=== PATIENT | male | born 1995 | race Two or more races ===

== ENCOUNTER 2018-12-28 01:56 | Emergency (ER) | payer OTHER ==
[~2018-12-28] VITALS: Ht 167.6 cm; Wt 77.1 kg
[2018-12-28] MEDS ORDERED: AZITHROMYCIN 250 MG TABLET PO ONE (03:00)
[2018-12-28] MEDS ORDERED: GUAIFENESIN/D-METHORPHAN HB 5 ML UDC PO ONE (03:00)
[2018-12-28] MEDS ORDERED: GUAIFENESIN/D-METHORPHAN HB 5 ML UDC ONE (03:15)
[2018-12-28] MEDS ORDERED: AZITHROMYCIN 250 MG TABLET ONE (03:15)
== END 2018-12-28 04:06 | disposition home or self-care (01) ==
LOC: ER 02:01
DX: J20.9 Acute bronchitis, unspecified (principal)
CPT/HCPCS: 71046